=== PATIENT | female | born 1980 | race American Indian/Alaskan Native ===

== ENCOUNTER 2018-11-05 10:27 | Outpatient (CLI) | payer MEDICAID, OTHER ==
[2018-11-05 11:46] LABS: Bacteria,Urine 1+ /HPF (Negative); Bilirubin,Urine NEG (Negative); Blood,Urine NEG (Negative); Color,Urine Yellow (Yellow); Mucus,Urine FEW /HPF; Protein,Urine <15 mg/dL mg/dL (Negative)
[2018-11-05 12:16] LABS: Hematocrit 38.7 % (30.3-42.9); Mean Corpuscular HGB Conc 34 % (30-34); Mean Corpuscular Volume 84 fl (79-97); Platelet Count 185 K/mm3 (140-440); Red Cell Distribution Width 13.7 % (13.2-15.2)
[2018-11-05 12:33] LABS: Alanine Aminotransferase 11 units/L (7-56); Uric Acid 4.3 mg/dL (3.5-7.6)
[2018-11-05 13:28] VITALS: BP 124/75
== END 2018-11-05 13:18 | disposition home or self-care (01) ==
LOC: TRG 10:27
PROVIDERS: ATTEND Obstetrics & Gynecology
DX: O47.1 False labor at or after 37 completed weeks of gestation (principal); O13.3 Gestational [pregnancy-induced] hypertension without significant proteinuria, third trimester; Z3A.39 39 weeks gestation of pregnancy
CPT/HCPCS: 36415; 81001; 82565; 83615; 84450; 84460; 84550; 85027

== ENCOUNTER 2018-11-08 07:16 | Outpatient (CLI) | payer MEDICAID, OTHER | END 2018-11-08 08:27 | disposition home or self-care (01) | LOC: TRG 07:16 ==

== ENCOUNTER 2018-11-09 01:56 | Inpatient (IN) | payer MEDICAID, OTHER ==
[2018-11-09] MEDS ORDERED: LACTATED RINGERS 1,000 ML ONE (02:39)
[2018-11-09] MEDS ORDERED: SUBLIMAZE ONE (02:46)
[2018-11-09] MEDS ORDERED: SUBLIMAZE IV PRN (02:50)
[2018-11-09] MEDS ORDERED: PITOCin/NS 20 UNIT/1000ML DRIP 20,000 MILLIUNITS/1,000 ML BAG IV ONE (02:53)
[2018-11-09] MEDS ORDERED: PITOCin/NS 20 UNIT/1000ML DRIP 20 UNITS/1,000 ML BAG IV SCH (03:00)
[2018-11-09] MEDS ORDERED: AMPICILLIN/NS 2 GM/100 ML 2 GM/100 ML BAG IV ONE (03:04)
--- NOTE | 2018-11-09 03:10 | History and Physical Report ---
History of Present Illness Date of examination: 11/09/18 Date of admission: 11/09/18 02:13 Chief complaint: contractions History of present illness: Pt presents in active labor. EDC Confirmation: 11/07/2018 Gestational Age: 16 weeks Past History : 2 Term Births: 1 Premature Births: 0 Living Children: 1 Para: 1 Mult. Births: 0 Prev : 0 Prev. attempt? 0 Aborta: 0 Elect. Ab: 0 Spont. 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 of genital herpes: no Genetic History ADVANCED MATERNAL AGE Congenital Heart Defect: Mom: no Dad: no Dave Disease: Mom: no Dad: no Thalassemia Mom: no Dad: no Neural Tube Defect Mom: no Dad: no Down's Syndrome Mom: no Dad: no Ifeanyi-Sachs Mom: no Dad: no Sickle Cell Disease/Trait Mom: no Dad: no Hemophilia Mom: no Dad: no Muscular Dystrophy Mom: no Dad: no Cystic Fibrosis Mom: no Dad: no [place] Chorea Mom: no Dad: no Mental Retardation Mom: no Dad: no Fragile X Mom: no Dad: no Other Genetic/Chromosomal Disorder Mom: no Dad: no Child w/other defect Mom: no Dad: no Enviromental Exposures Xray Exposure: no Medication, drug, or alcohol use since LMP: no Chemical/Other Exposure: no Exposure to Cat Liter: no Active Medications (reviewed today): None Current Allergies (reviewed today): No known allergies Past History Past Medical History: no pertinent history Past Surgical History: no surgical history SUPERVISOR PRODUCTION History: trichomonas Social history: no significant social history - Obstetrical History Expected Date of Delivery: 11/07/18 Actual Gestation: 40 Week(s) 2 Day(s) : 2 Para: 1 Number of Living Children: 1 Medications and Allergies Allergies Allergy/AdvReac Type Severity Reaction Status Date / Time No Known Allergies Allergy Verified 09/10/15 21:39 Home Medications Medication Instructions Recorded Confirmed Last Taken Type Vit-Fe Fumar-FA [ 1 tab PO QDAY 11/09/18 11/09/18 11/08/18 18:00 History Vitamin] Active Meds: Active Medications Fentanyl (Sublimaze) 100 mcg IV Q2H PRN PRN Reason: Labor Pain Lactated Ringer's (Lactated Ringers) 1,000 mls @ 125 mls/hr IV DIRECT GERARDO Oxytocin/Sodium Chloride (Pitocin/Ns 20 Unit/1000ml Drip) 20 units in 1,000 mls @ 125 mls/hr IV DIRECT GERARDO Ampicillin Sodium (Polycillin/Ns 2 Gm/100 Ml) 2 gm in 100 mls @ 100 mls/hr IV ONCE ONE; Protocol Stop: 11/09/18 04:03 Review of Systems All systems: negative - Vital Signs Vital signs: Vital Signs Pulse BP 83 138/88 11/09/18 02:01 11/09/18 02:01 Temp Pulse Resp BP Pulse Ox 97.3 F L 83 22 137/91 11/09/18 02:48 11/09/18 02:55 11/09/18 02:50 11/09/18 02:55 - Physical Exam Lungs: Positive: Normal air movement Genitourinary (Female): Positive: normal external genitalia, normal perenium (no lesions) Vagina: Positive: normal moisture Extremities: Positive: normal. Negative: tenderness, edema Deep Tendon Reflex Grade: Normal +2 Results All other labs normal. Assessment and Plan - Patient Problems (1) 40 weeks gestation of Current Visit: Yes Status: Acute (2) Active labor at term Current Visit: Yes Status: Acute Plan to address problem: -admit -anticipate -IV pain med -pt desires epidural
[2018-11-09] MEDS: LACTATED RINGERS 1,000 ML IV SCH ×2 (03:26→07:30)
[2018-11-09 03:32] LABS: Hematocrit 40.7 % (30.3-42.9); Hemoglobin 13.7 gm/dl (10.1-14.3); Mean Corpuscular HGB Conc 34 % (30-34); Mean Corpuscular Volume 85 fl (79-97); Platelet Count 225 K/mm3 (140-440); Red Blood Count 4.81 M/mm3 (3.65-5.03); Red Cell Distribution Width 14.1 % (13.2-15.2)
[2018-11-09] MEDS ORDERED: LIDOCAINE 1.5%/EPI 1:200,000 INFILTRATI ONE (04:26)
[2018-11-09] MEDS ORDERED: MARCAINE 0.25% INFILTRATI ONE (04:26)
[2018-11-09] MEDS ORDERED: NARCAN 2 MG/2 ML IV PRN (05:04)
--- NOTE | 2018-11-09 05:06 | Anesthesia Consultation ---
Anesthesia Consult and Med Hx - Airway Anesthetic Teeth Evaluation: Good ROM Head & Neck: Adequate Mental/Hyoid Distance: Adequate Mallampati Class: Class I Intubation Access Assessment: Probably Good - Pulmonary Exam CTA: Yes - Cardiac Exam Cardiac Exam: RRR - Pre-Operative Health Status ASA Pre-Surgery Classification: ASA2 Proposed Anesthetic Plan: Epidural, Spinal - Pulmonary Hx Asthma: No COPD: No Hx Pneumonia: No - Cardiovascular System Hx Hypertension: No - Central Nervous System Hx Seizures: No Hx Psychiatric Problems: No - Endocrine Hx Renal Disease: No Hx End Stage Renal Disease: No Hx Hypothyroidism: No Hx Hyperthyroidism: No - Hematic Hx Anemia: No Hx Sickle Cell Disease: No - Other Systems Hx Alcohol Use: No
--- NOTE | 2018-11-09 05:06 | Anesthesia Day of Surgery ---
Anesthesia Day of Surgery - Day of Surgery Patient Examined: Yes Patient H&P Reviewed: Yes Patient is NPO: Yes Beta Blockers: No Cardiac Clearance: No Pulmonary Clearance: No Ankur's Test: N/A
[2018-11-09] MEDS ORDERED: fentaNYL-BUPIV 2 MCG/ML-0.125% 200 MCG/100 ML BAG EPIDURAL SCH (06:00)
[2018-11-09] MEDS ORDERED: PITOCin/NS 30 UNIT/500ML 30,000 MILLIUNITS/500 ML BAG IV ONE (06:12)
[2018-11-09] MEDS ORDERED: PITOCin/NS 30 UNIT/500ML 30 UNITS/500 ML BAG IV SCH (06:12)
--- NOTE | 2018-11-09 06:44 | Event Note ---
Date: 11/09/18 I Came to bedside to evaluate pt. As provider was check cervix, pt noted to have glazed gaze, with eyes fluttering and not responding to provider commands initially but was responding to the sound of my voice by turning head and facing me direction. Sternal rub did not cause pt to have a pain response. She also was note to have sweating. Code MET was called. Pt remained in this state for about 10 minutes or less slowly coming around. She did not appear to be having a seizure. All vital including a blood sugar were normal. By the time the personel for the code arrived she was responsive and oriented to time, person and place. She did appear to have some confusion initially but now appears to be fine. She stated that she felt hot and did remember be rubbing on her chest. Cx noted to be 9/100/0. I allowed pt to push to see if remaining cervix could be reduced as pt is a multip and she was stable with normal response to commands. Pt did push but was not effective. During pt episode epidural pump was d/c but it has been restarted. She did have hypotensive episode prior to this even and was given effedrin as per order by rickie DORAN. Pt also now states that with last baby she did have a shoulder dystocia. She states she did not reveal this through out her care until now. That baby weight was 7lbs 12 oz. She as she did on admission denied any use of drugs or alcohol prior to admission. I have d/w that she may need operative delivery via c/s for or maternal indications. Report has been given to Dr. Meza on coming provider for today. Consents for c/s have been signed and placed on the chart.
--- NOTE | 2018-11-09 10:15 | Procedure Note ---
OB Delivery Note - Delivery Date of Delivery: 11/09/18 Surgeon: ZUNILDA MIRANDA Estimated blood loss: 300cc - Vaginal Delivery presentation: vertex Delivery position: OA Intrapartum events: none Delivery induction: none Delivery augmentation: pitocin Delivery monitor: external FHT, external uterine, internal FHT Route of delivery: Delivery placenta: spontaneous Episiotomy: none Delivery laceration: none Anesthesia: epidural - A at 1 minute: 8 at 5 minutes: 9 Gender: Male (6lb 5oz)
[2018-11-09] MEDS ORDERED: SODIUM CHLORIDE FLUSH SYRINGE 10 ML IV NR (14:26)
[2018-11-09] MEDS ORDERED: BENADRYL PO PRN (14:26)
[2018-11-09] MEDS ORDERED: DULCOLAX PR PRN (14:26)
[2018-11-09] MEDS ORDERED: MILK OF MAGNESIA PO PRN (14:26)
[2018-11-09] MEDS ORDERED: PHENERGAN PO PRN (14:26)
[2018-11-09] MEDS ORDERED: TYLENOL PO PRN (14:26)
[2018-11-09] MEDS ORDERED: NORCO 5/325 PO PRN (14:26)
[2018-11-09] MEDS ORDERED: LANSINOH TP PRN (14:26)
[2018-11-09] MEDS ORDERED: TUCKS PAD TP PRN (14:26)
[2018-11-09] MEDS: IBUPROFEN PO SCH (15:14)
[2018-11-09] MEDS: COLACE PO SCH (22:16)
[2018-11-09 22:40] LABS: Hematocrit 33.1 % (30.3-42.9); Hemoglobin 11.1 gm/dl (10.1-14.3)
[2018-11-10] MEDS: IBUPROFEN PO SCH ×2 (05:40→11:11)
[2018-11-10 08:06] VITALS: BP 119/70
--- NOTE | 2018-11-10 09:50 | Discharge Summary ---
Providers - Providers Date of Admission: 11/09/18 02:13 Date of discharge: 11/10/18 Attending physician: VELMA PICKETT 11/09/18 14:26 Consult to Yield Loss Inspector [CONS] Routine Reason For Exam: assistance with , SNS Primary care physician: VELMA PICKETT Hospitalization Reason for admission: active labor Delivery: Episiotomy: none Laceration: none Other procedures: none complications: none Discharge diagnosis: IUP at term delivered baby: male Hospital course: See dictated H&P. Patient was admitted underwent a normal spontaneous vaginal delivery. Her course was benign. She was afebrile throughout her stay. Her day 1 hematocrit was 33%. Patient is bottlefeeding and desires bilateral tubal ligation control. Condition at discharge: Good Disposition: DC-01 TO HOME OR SELFCARE - Discharge Diagnoses (1) 40 weeks gestation of Status: Acute (2) Active labor at term Status: Acute Plan - Discharge Medications Prescriptions: Lidocain2.5%/Prilocai2.5% [Emla] 5 gm TP ONCE #1 tube Ibuprofen [Motrin 800 MG tab] 800 mg PO Q6H PRN #30 tablet PRN Reason: Pain - Provider Discharge Summary Activity: routine, no sex for 6 weeks, no heavy lifting 4 weeks Diet: routine Instructions: routine Additional instructions: [] Smoking cessation referral if applicable(refer to patient education folder for contact #) [] Refer to [facility]'s [facility] Booklet Call your doctor immediately for: * Fever > 100.5 * Heavy vaginal bleeding ( >1 pad per hour) * Severe persistent headache * Shortness of breath * Reddened, hot, painful area to leg or breast * Drainage or odor from incision. *Patient follow up in office in 4 weeks. Patient called office schedule circumcision for her son. - Follow up plan Follow up: VELMA PICKETT MD [Primary Care Provider] - 7 Days
[2018-11-10] MEDS ORDERED: PRENATAL VITAMIN PO SCH (10:00)
[2018-11-10] MEDS: COLACE PO SCH (11:12)
== END 2018-11-10 14:45 | disposition home or self-care (01) | DRG 807 ==
LOC: TRG 01:56 → LD 02:13 → OB 12:20
PROVIDERS: ADMIT Obstetrics & Gynecology; ATTEND Obstetrics & Gynecology
PROC: 10E0XZZ Delivery of Products of Conception, External Approach (ICD-10-PCS; principal; 2018-11-09)
PROC: 3E0R3BZ Introduction of Anesthetic Agent into Spinal Canal, Percutaneous Approach (ICD-10-PCS; 2018-11-09)
PROC: 00HU33Z Insertion of Infusion Device into Spinal Canal, Percutaneous Approach (ICD-10-PCS; 2018-11-09)
DX: O80 Encounter for full-term uncomplicated delivery (principal); Z37.0 Single live birth; Z3A.40 40 weeks gestation of pregnancy
CPT/HCPCS: 36415; 82962; 85014; 85018; 85027; 86592; 86850; 86900; 86901; G0378; J0290; J2590; J3010; J7120

== ENCOUNTER 2020-06-13 04:53 | Emergency (ER) | payer SELFPAY ==
[2020-06-13] MEDS ORDERED: dexAMETHasone 20 MG/5 ML VIAL IM ONE (05:59)
--- NOTE | 2020-06-13 06:30 | Emergency Department Report ---
ED Allergic Reaction HPI - General Chief complaint: Allergic Reaction Stated complaint: BODY RASH/ICHY ALL OVER Time Seen by Provider: 06/13/20 05:52 Source: patient Mode of arrival: Ambulatory Limitations: No Limitations - History of Present Illness Initial Comments: 39-year-old -[place] female presents to the emergency room complaining of body itching since yesterday. Patient denies any swelling of her lips or tongue. She denies any shortness of breath or chest pain. Patient denies any rash. She does report using [id number] Benadryl 50 mg as taken yesterday approximately 6 PM. Patient denies any new soaps lotions, or creams. She does admit to a new shirt yesterday as well as new perfume. MD Complaint: allergic reaction Onset/Timin -: days(s) Symptoms: itching. denies: rash, facial swelling, lip swelling, difficulty swallowing, difficulty breathing, orolingual swelling, hoarseness, nausea, vomiting Severity: mild Treatment Prior to Arrival: benadryl - Related Data Home Medications Medication Instructions Recorded Confirmed Last Taken Vit-Fe Fumar-FA [ 1 tab PO QDAY 11/09/18 11/09/18 11/08/18 18:00 Vitamin] Previous Rx's Medication Instructions Recorded Last Taken Type Ibuprofen [Motrin 800 MG tab] 800 mg PO Q6H PRN #30 tablet 11/10/18 Unknown Rx Lidocain2.5%/Prilocai2.5% [Emla] 5 gm TP ONCE #1 tube 11/10/18 Unknown Rx Loratadine [Claritin] 10 mg PO QDAY #15 tablet 06/13/20 Unknown Rx predniSONE [Deltasone] 20 mg PO QDAY #5 tab 06/13/20 Unknown Rx Allergies Allergy/AdvReac Type Severity Reaction Status Date / Time No Known Allergies Allergy Verified 09/10/15 21:39 ED Review of Systems ROS: Stated complaint: BODY RASH/ICHY ALL OVER Other details as noted in HPI ED Past Medical Hx - Past Medical History Previous Medical History?: No Hx Hypertension: No Hx Congestive Heart Failure: No Hx Diabetes: No Hx Deep Vein Thrombosis: No Hx Renal Disease: No Hx Sickle Cell Disease: No Hx Seizures: No Hx Asthma: No Hx COPD: No Hx HIV: No - Surgical History Past Surgical History?: No - Social History Smoking Status: Never Smoker Substance Use Type: None - Medications Home Medications: Home Medications Medication Instructions Recorded Confirmed Last Taken Type Vit-Fe Fumar-FA [ 1 tab PO QDAY 11/09/18 11/09/18 11/08/18 18:00 History Vitamin] Ibuprofen [Motrin 800 MG tab] 800 mg PO Q6H PRN #30 tablet 11/10/18 Unknown Rx Lidocain2.5%/Prilocai2.5% [Emla] 5 gm TP ONCE #1 tube 11/10/18 Unknown Rx Loratadine [Claritin] 10 mg PO QDAY #15 tablet 06/13/20 Unknown Rx predniSONE [Deltasone] 20 mg PO QDAY #5 tab 06/13/20 Unknown Rx ED Physical Exam - General Limitations: No Limitations General appearance: alert, in no apparent distress - Head Head exam: Present: atraumatic, normocephalic - Eye Eye exam: Present: normal appearance - ENT ENT exam: Present: mucous membranes moist - Respiratory Respiratory exam: Present: normal lung sounds bilaterally - Cardiovascular Cardiovascular Exam: Present: regular rate - Extremities Exam Extremities exam: Present: normal inspection - Neurological Exam Neurological exam: Present: alert, oriented X3, normal gait - Psychiatric Psychiatric exam: Present: normal affect, normal mood - Skin Skin exam: Present: warm, dry, intact, normal color. Absent: rash ED Course Vital Signs 06/13/20 06/13/20 05:23 06:48 Temperature 98.0 F 98.1 F Pulse Rate 77 84 Respiratory 18 18 Rate Blood Pressure 158/94 Blood Pressure 138/88 [Left] O2 Sat by Pulse 98 99 Oximetry ED Medical Decision Making - Medical Decision Making 39-year-old -[place] female presents to the emergency room complaining of body itching since yesterday. Patient denies any swelling of her lips or tongue. She denies any shortness of breath or chest pain. Patient denies any rash. She does report using [id number] Benadryl 50 mg as taken yesterday approximately 6 PM. Patient denies any new soaps lotions, or creams. She does admit to a new shirt yesterday as well as new perfume. She will be given dexamethasone 10 mg IM. Patient be discharged home with a prednisone prescription for 20 mg daily for the next 5 days. Patient is instructed to take Claritin 10 mg daily and to follow-up with an patcher bowling ball. Critical care attestation.: If time is entered above; I have spent that time in minutes in the direct care of this critically ill patient, excluding procedure time. ED Disposition Clinical Impression: Pruritus Disposition: DC-01 TO HOME OR SELFCARE Is pt being admited?: No Does the pt Need Aspirin: No Condition: Stable Instructions: Allergies (ED) Additional Instructions: Please take prednisone as prescribed Claritin as prescribed. Follow-up with an patcher bowling ball. Prescriptions: Loratadine [Claritin] 10 mg PO QDAY #15 tablet predniSONE [Deltasone] 20 mg PO QDAY #5 tab Referrals: [facility] [Provider Group] - 3-5 Days [facility]IMARY [facility]ARE, [Primary Care Provider] - 3-5 Days
[2020-06-13] MEDS ORDERED: dexAMETHasone 20 MG/5 ML VIAL ONE (06:32)
[2020-06-13 06:49] VITALS: BP 138/88
== END 2020-06-13 06:48 | disposition home or self-care (01) ==
LOC: ED 04:53
DX: L29.8 Other pruritus (principal); Z79.899 Other long term (current) drug therapy
CPT/HCPCS: 96372; 99282; J1100

== ENCOUNTER 2020-06-15 06:19 | Inpatient (IN) | payer OTHER ==
[2020-06-15] MEDS ORDERED: HYDROmorphone 1 MG/1 ML INJ IV ONE ×3 (06:54→09:33)
[2020-06-15] MEDS ORDERED: ONDANSETRON 4 MG/2 ML INJ IV ONE (06:54)
[2020-06-15] MEDS ORDERED: ONDANSETRON 4 MG/2 ML INJ ONE (06:55)
[2020-06-15] MEDS ORDERED: HYDROmorphone 1 MG/1 ML INJ ONE (06:55)
--- NOTE | 2020-06-15 06:56 | Emergency Department Report ---
ED Abdominal Pain HPI - General Chief Complaint: Abdominal Pain Stated Complaint: ABDOMINAL PAIN PUI?: No Time Seen by Provider: 06/15/20 06:47 Source: patient, EMS Mode of arrival: Stretcher Limitations: No Limitations - History of Present Illness Initial Comments: 39-year-old female with no past medical surgical history presents to the hospital complaining of severe abdominal pain since taking Atarax this morning. Patient was seen here on June 13 for allergic reaction thought to be due to a new shirt or possible new perfume. Patient symptoms at that time was generalized body itching and rash without lip or airway swelling. She was treated here in the ED and discharged on prednisone and Claritin. Patient states she is continued to have persistent itching despite taking the medication and therefore went to [facility]. Patient was provided Atarax for persistent itching and states she took 4 pills. She then started to develop severe generalized abdominal pain radiating to the back. Patient also having nausea and vomiting patient is writhing in pain dating pain is 10/10 in intensity and sharp in nature. Pain is worse with palpation and no alleviating factors reported. - Related Data Home Medications Medication Instructions Recorded Confirmed Last Taken Vit-Fe Fumar-FA [ 1 tab PO QDAY 11/09/18 11/09/18 11/08/18 18:00 Vitamin] Previous Rx's Medication Instructions Recorded Last Taken Type Ibuprofen [Motrin 800 MG tab] 800 mg PO Q6H PRN #30 tablet 11/10/18 Unknown Rx Lidocain2.5%/Prilocai2.5% [Emla] 5 gm TP ONCE #1 tube 11/10/18 Unknown Rx Loratadine [Claritin] 10 mg PO QDAY #15 tablet 06/13/20 Unknown Rx predniSONE [Deltasone] 20 mg PO QDAY #5 tab 06/13/20 Unknown Rx Allergies Allergy/AdvReac Type Severity Reaction Status Date / Time No Known Allergies Allergy Verified 09/10/15 21:39 ED Review of Systems ROS: Stated complaint: ABDOMINAL PAIN Other details as noted in HPI Comment: All other systems reviewed and negative ED Past Medical Hx - Past Medical History Previous Medical History?: No Hx Hypertension: No Hx Congestive Heart Failure: No Hx Diabetes: No Hx Deep Vein Thrombosis: No Hx Renal Disease: No Hx Sickle Cell Disease: No Hx Seizures: No Hx Asthma: No Hx COPD: No Hx HIV: No - Surgical History Past Surgical History?: No - Social History Smoking Status: Former Smoker Substance Use Type: None - Medications Home Medications: Home Medications Medication Instructions Recorded Confirmed Last Taken Type Vit-Fe Fumar-FA [ 1 tab PO QDAY 11/09/18 11/09/18 11/08/18 18:00 History Vitamin] Ibuprofen [Motrin 800 MG tab] 800 mg PO Q6H PRN #30 tablet 11/10/18 Unknown Rx Lidocain2.5%/Prilocai2.5% [Emla] 5 gm TP ONCE #1 tube 11/10/18 Unknown Rx Loratadine [Claritin] 10 mg PO QDAY #15 tablet 06/13/20 Unknown Rx predniSONE [Deltasone] 20 mg PO QDAY #5 tab 06/13/20 Unknown Rx ED Physical Exam - General Limitations: No Limitations - Other Other exam information: General: Positive distress secondary to pain Head: Atraumatic Eyes: normal appearance ENT: Moist mucous membranes Neck: Normal appearance, no midline tenderness Chest: Clear to auscultation bilaterally CV: Regular rate and rhythm Abdomen: Soft, normal bowel sounds, generalized abdominal tenderness, nondistended, no rebound or guarding Back: Normal inspection Extremity: Normal inspection, full range of motion Neuro: Alert O x 3, no facial asymmetry, speech clear, no gross motor sensory deficit Psych: Distress secondary to pain Skin: No rash ED Course Vital Signs 06/15/20 06/15/20 06/15/20 06:29 06:30 06:32 Temperature Pulse Rate 73 Respiratory 21 15 18 Rate Blood Pressure 138/87 Blood Pressure [Right] O2 Sat by Pulse 100 Oximetry 06/15/20 06/15/20 06/15/20 06:33 06:34 06:36 Temperature Pulse Rate 67 Respiratory 17 13 13 Rate Blood Pressure 138/87 138/87 138/87 Blood Pressure [Right] O2 Sat by Pulse 100 100 100 Oximetry 06/15/20 06/15/20 06/15/20 06:39 06:50 09:14 Temperature 98.3 F Pulse Rate 59 L Respiratory 18 17 Rate Blood Pressure Blood Pressure 157/90 [Right] O2 Sat by Pulse 100 100 Oximetry 06/15/20 06/15/20 06/15/20 10:01 10:30 11:32 Temperature Pulse Rate 56 L 59 L 66 Respiratory 28 H 25 H 14 Rate Blood Pressure 161/91 164/96 141/94 Blood Pressure [Right] O2 Sat by Pulse 99 96 100 Oximetry ED Medical Decision Making - Lab Data Result diagrams: 06/15/20 06:52 06/15/20 06:45 Lab Results 06/15/20 06/15/20 06/15/20 Range/Units 06:45 06:52 06:54 WBC 6.6 (4.5-11.0) K/mm3 RBC 5.12 H (3.65-5.03) M/mm3 Hgb 13.8 (10.1-14.3) gm/dl Hct 42.3 (30.3-42.9) % MCV 83 (79-97) fl MCH 27 L (28-32) pg MCHC 33 (30-34) % RDW 13.7 (13.2-15.2) % Plt Count 212 (140-440) K/mm3 Lymph % (Auto) 44.3 H (13.4-35.0) % [place] % (Auto) 7.6 H (0.0-7.3) % Eos % (Auto) 0.2 (0.0-4.3) % Baso % (Auto) 0.6 (0.0-1.8) % Lymph # 2.9 (1.2-5.4) K/mm3 [place] # 0.5 (0.0-0.8) K/mm3 Eos # 0.0 (0.0-0.4) K/mm3 Baso # 0.0 (0.0-0.1) K/mm3 Seg Neutrophils % 47.3 (40.0-70.0) % Seg Neutrophils # 3.1 (1.8-7.7) K/mm3 Sodium 140 (137-145) mmol/L Potassium 3.1 L (3.6-5.0) mmol/L Chloride 101.5 (98-107) mmol/L Carbon Dioxide 20 L (22-30) mmol/L Anion Gap 22 mmol/L BUN 6 L (7-17) mg/dL Creatinine 0.8 (0.6-1.2) mg/dL Estimated GFR > 60 ml/min BUN/Creatinine Ratio 8 % Glucose 95 (65-100) mg/dL Calcium 9.7 (8.4-10.2) mg/dL Total Bilirubin 0.60 (0.1-1.2) mg/dL AST 15 (5-40) units/L ALT 13 (7-56) units/L Alkaline Phosphatase 68 (35-129) units/L Total Protein 8.4 H (6.3-8.2) g/dL Albumin 4.4 (3.9-5) g/dL Albumin/Globulin Ratio 1.1 % Lipase 20 (13-60) units/L HCG, Quant < 2 (0-4) mIU/mL - Radiology Data Radiology results: report reviewed CT ABDOMEN AND PELVIS WITH IV CONTRAST INDICATION: severe generalized abdomina pain. COMPARISON: None available. TECHNIQUE: Axial CT images were obtained through the abdomen and pelvis after 100 mL IV contrast. All CT scans at this location are performed using CT dose reduction for ALARA by means of automated exposure control. FINDINGS -- ABDOMEN: Lung Bases: No acute abnormality. Liver: Normal. Gallbladder: Normal. Bile Ducts: Normal. Pancreas: Normal. Spleen: Normal. Adrenals: Normal. Right Kidney and Proximal Ureter: Normal. Left Kidney and Proximal Ureter: Normal. Stomach and Bowel: The mucosa of the distal gastric body and gastric antrum appear thickened.. Lymph Nodes: No significant adenopathy. Aorta: No significant abnormality. IVC: Normal. Additional Findings: None. FINDINGS -- PELVIS: Urinary Bladder and Distal Ureters: Normal. Reproductive Organs: No acute abnormality. Appendix: Not well identified.. Bowel: No acute abnormality. Free Fluid: Minimal free pelvic fluid.. Lymph Nodes: No significant adenopathy. Additional Findings: None. Skeletal System: No acute abnormality. IMPRESSION: Thickened mucosa involving the body and distal gastric antrum, as above could represent mild gastritis. Minimal free pelvic fluid is likely physiologic. - Medical Decision Making Patient having significant pain after taking 4 tablets of Atarax for persistent pruritus due to allergic reaction to unknown substance with no exposure to perfume. His hospital is can be an adverse medication reaction. Patient requiring significant pain medication in the ED to control her pain. CT abdomen pelvis suggestive of gastritis. Labs unremarkable with exception of mild hypokalemia which was supplemented in the ED. Urine pending at disposition. Patient will be admitted to the hospitalist service for further treatment. Critical Care Time: No Critical care attestation.: If time is entered above; I have spent that time in minutes in the direct care of this critically ill patient, excluding procedure time. ED Disposition Clinical Impression: Intractable abdominal pain, Gastritis Disposition: DC-09 OP ADMIT IP TO THIS HOSP Is pt being admited?: Yes Condition: Stable
[2020-06-15 07:19] LABS: Basophils % (Auto) 0.6 % (0.0-1.8); Eosinophils % (Auto) 0.2 % (0.0-4.3); Hematocrit 42.3 % (30.3-42.9); Hemoglobin 13.8 gm/dl (10.1-14.3); Lymphocytes # (Auto) 2.9 K/mm3 (1.2-5.4); Lymphocytes % (Auto) 44.3 % (13.4-35.0); Mean Corpuscular HGB Conc 33 % (30-34); Mean Corpuscular Volume 83 fl (79-97); Monocytes # (Auto) 0.5 K/mm3 (0.0-0.8); Monocytes % (Auto) 7.6 % (0.0-7.3); Platelet Count 212 K/mm3 (140-440); Red Blood Count 5.12 M/mm3 (3.65-5.03); Red Cell Distribution Width 13.7 % (13.2-15.2)
[2020-06-15 07:43] LABS: Alanine Aminotransferase 13 units/L (7-56); Albumin 4.4 g/dL (3.9-5); BUN/Creatinine Ratio 8; Blood Urea Nitrogen 6 mg/dL (7-17); Calcium 9.7 mg/dL (8.4-10.2); Hemolysis Index 4
[2020-06-15] MEDS ORDERED: SODIUM CHLORIDE 0.9% 1000 ML 1,000 ML IV ONE (08:07)
[2020-06-15] MEDS ORDERED: POTASSIUM CHLORIDE ER 20 MEQ TAB PO ONE (08:07)
--- NOTE | 2020-06-15 09:25 | Cat Scan Report ---
CT ABDOMEN AND PELVIS WITH IV CONTRAST INDICATION: severe generalized abdomina pain. COMPARISON: None available. TECHNIQUE: Axial CT images were obtained through the abdomen and pelvis after 100 mL IV contrast. All CT scans a t this location are performed using CT dose reduction for ALARA by means of automated exposure contro l. FINDINGS -- ABDOMEN: Lung Bases: No acute abnormality. Liver: Normal. Gallbladder: Normal. Bile Ducts: Normal. Pancreas: Normal. Spleen: Normal. Adrenals: Normal. Right Kidney and Proximal Ureter: Normal. Left Kidney and Proximal Ureter: Normal. Stomach and Bowel: The mucosa of the distal gastric body and gastric antrum appear thickened.. Lymph Nodes: No significant adenopathy. Aorta: No significant abnormality. IVC: Normal. Additional Findings: None. FINDINGS -- PELVIS: Urinary Bladder and Distal Ureters: Normal. Reproductive Organs: No acute abnormality. Appendix: Not well identified.. Bowel: No acute abnormality. Free Fluid: Minimal free pelvic fluid.. Lymph Nodes: No significant adenopathy. Additional Findings: None. Skeletal System: No acute abnormality. IMPRESSION: Thickened mucosa involving the body and distal gastric antrum, as above could represent mild gastriti s. Minimal free pelvic fluid is likely physiologic. Signer Name: Lawrence Hills MD Signed: 06/15/2020 9:21 AM Workstation Name: [id number]
[2020-06-15] MEDS ORDERED: FAMOTIDINE 20 MG/2 ML INJ IV ONE (09:28)
[2020-06-15] MEDS: HYDROmorphone 1 MG/1 ML INJ IV PRN ×2 (14:36→18:35)
--- NOTE | 2020-06-15 17:19 | History and Physical Report ---
History of Present Illness Date of examination: 06/15/20 Date of admission: 06/15/20 09:59 Chief complaint: Severe abdominal pain for 1 day History of present illness: 39-year-old female with no significant past medical history comes in for severe abdominal pain. Pain is about 10 on a scale of 1-10. Patient also has persistent itching and went to [facility].Patient was discharged on Atarax. Patient comes in for severe epigastric and periumbilical pain. No exacerbating or relieving factors. Nausea present but no vomiting or diarrhea. No history of peptic ulcer disease. Pain is sharp. No radiation. Past History Past Medical History: No medical history Past Surgical History: No surgical history Social history: lives with family, full code Family history: hypertension Medications and Allergies Allergies Allergy/AdvReac Type Severity Reaction Status Date / Time No Known Allergies Allergy Verified 09/10/15 21:39 Home Medications Medication Instructions Recorded Confirmed Last Taken Type Vit-Fe Fumar-FA [ 1 tab PO QDAY 11/09/18 11/09/18 11/08/18 18:00 History Vitamin] Ibuprofen [Motrin 800 MG tab] 800 mg PO Q6H PRN #30 tablet 11/10/18 Unknown Rx Lidocain2.5%/Prilocai2.5% [Emla] 5 gm TP ONCE #1 tube 11/10/18 Unknown Rx Loratadine [Claritin] 10 mg PO QDAY #15 tablet 06/13/20 Unknown Rx predniSONE [Deltasone] 20 mg PO QDAY #5 tab 06/13/20 Unknown Rx Active Meds: Active Medications Hydromorphone HCl (Dilaudid) 1 mg IV Q4H PRN PRN Reason: Pain , Severe (7-10) Last Admin: 06/15/20 14:36 Dose: 1 mg Documented by: Review of Systems All systems: negative Gastrointestinal: abdominal pain, nausea Exam - Constitutional Vitals: Temp Pulse Resp BP Pulse Ox 98.3 F 66 14 141/94 100 06/15/20 06:39 06/15/20 11:32 06/15/20 11:32 06/15/20 11:32 06/15/20 11:32 General appearance: Present: mild distress, well-nourished - EENT Eyes: Present: PERRL ENT: hearing intact, clear oral mucosa - Neck Neck: Present: supple, normal ROM - Respiratory Respiratory effort: normal Respiratory: bilateral: CTA - Cardiovascular Heart rate: 78 Heart Sounds: Present: S1 & S2. Absent: rub, click - Extremities Extremities: no ischemia, pulses intact, pulses symmetrical, No edema Peripheral Pulses: within normal limits - Abdominal General gastrointestinal: Present: soft, non-tender, non-distended, normal bowel sounds Female genitourinary: Present: normal - Rectal Rectal Exam: deferred - Integumentary Integumentary: Present: clear, warm, dry - Musculoskeletal Musculoskeletal: gait normal, strength equal bilaterally - Psychiatric Psychiatric: appropriate mood/affect, intact judgment & insight - Neurologic Neurologic: CNII-XII intact, moves all extremities - Allied Health Allied health notes reviewed: nursing, case management Results - Labs CBC & Chem 7: 06/16/20 05:16 06/16/20 05:16 Labs: Laboratory Last Values WBC 6.6 K/mm3 (4.5-11.0) 06/15/20 06:52 RBC 5.12 M/mm3 (3.65-5.03) H 06/15/20 06:52 Hgb 13.8 gm/dl (10.1-14.3) 06/15/20 06:52 Hct 42.3 % (30.3-42.9) 06/15/20 06:52 MCV 83 fl (79-97) 06/15/20 06:52 MCH 27 pg (28-32) L 06/15/20 06:52 MCHC 33 % (30-34) 06/15/20 06:52 RDW 13.7 % (13.2-15.2) 06/15/20 06:52 Plt Count 212 K/mm3 (140-440) 06/15/20 06:52 Lymph % (Auto) 44.3 % (13.4-35.0) H 06/15/20 06:52 [place] % (Auto) 7.6 % (0.0-7.3) H 06/15/20 06:52 Eos % (Auto) 0.2 % (0.0-4.3) 06/15/20 06:52 Baso % (Auto) 0.6 % (0.0-1.8) 06/15/20 06:52 Lymph # 2.9 K/mm3 (1.2-5.4) 06/15/20 06:52 [place] # 0.5 K/mm3 (0.0-0.8) 06/15/20 06:52 Eos # 0.0 K/mm3 (0.0-0.4) 06/15/20 06:52 Baso # 0.0 K/mm3 (0.0-0.1) 06/15/20 06:52 Seg Neutrophils % 47.3 % (40.0-70.0) 06/15/20 06:52 Seg Neutrophils # 3.1 K/mm3 (1.8-7.7) 06/15/20 06:52 Sodium 140 mmol/L (137-145) 06/15/20 06:45 Potassium 3.1 mmol/L (3.6-5.0) L 06/15/20 06:45 Chloride 101.5 mmol/L (98-107) 06/15/20 06:45 Carbon Dioxide 20 mmol/L (22-30) L 06/15/20 06:45 Anion Gap 22 mmol/L 06/15/20 06:45 BUN 6 mg/dL (7-17) L 06/15/20 06:45 Creatinine 0.8 mg/dL (0.6-1.2) 06/15/20 06:45 Estimated GFR > 60 ml/min 06/15/20 06:45 BUN/Creatinine Ratio 8 % 06/15/20 06:45 Glucose 95 mg/dL (65-100) 06/15/20 06:45 Calcium 9.7 mg/dL (8.4-10.2) 06/15/20 06:45 Total Bilirubin 0.60 mg/dL (0.1-1.2) 06/15/20 06:45 AST 15 units/L (5-40) 06/15/20 06:45 ALT 13 units/L (7-56) 06/15/20 06:45 Alkaline Phosphatase 68 units/L (35-129) 06/15/20 06:45 Total Protein 8.4 g/dL (6.3-8.2) H 06/15/20 06:45 Albumin 4.4 g/dL (3.9-5) 06/15/20 06:45 Albumin/Globulin Ratio 1.1 % 06/15/20 06:45 Lipase 20 units/L (13-60) 06/15/20 06:45 HCG, Quant < 2 mIU/mL (0-4) 06/15/20 06:54 - Imaging and Cardiology Imaging and Cardiology: CT Abdomen with contrast IMPRESSION: Thickened mucosa involving the body and distal gastric antrum, as above could represent mild gastritis. Minimal free pelvic fluid is likely physiologic. Zuñiga/IV: IV Catheter Type [Left INT / Saline Lock Antecubital] Assessment and Plan Advance Directives: Yes (Full code) VTE prophylaxis?: Chemical Plan of care discussed with patient/family: Yes - Patient Problems (1) Intractable abdominal pain Current Visit: Yes Status: Acute Plan to address problem: Patient in intractable pain Will get GI and surgery consult (2) Pruritus Current Visit: No Status: Acute Plan to address problem: Benadryl IV 25 mg every 6 as needed (3) Acute gastritis Current Visit: Yes Status: Acute Plan to address problem: IV Protonix for now (4) Discharge planning issues Current Visit: Yes Status: Acute Plan to address problem: Possible discharge tomorrow
[2020-06-15] MEDS ORDERED: ACETAMINOPHEN 325 MG TAB PO PRN (17:21)
[2020-06-15] MEDS ORDERED: ONDANSETRON 4 MG/2 ML INJ IV PRN (17:21)
[2020-06-15] MEDS ORDERED: METOCLOPRAMIDE 10 MG/2 ML INJ IV PRN (17:21)
[2020-06-15] MEDS: D5W/0.9% NACL 1,000 ML IV SCH (17:43)
[2020-06-15] MEDS ORDERED: diphenhydrAMINE 50 MG/ML VIAL IV PRN (18:27)
[2020-06-15] MEDS: PANTOPRAZOLE 40 MG INJ IV SCH (21:17)
[2020-06-15] MEDS: oxyCODONE /ACETAMINOPHEN 5-325MG TAB PO PRN (22:45)
[2020-06-16] MEDS: HYDROmorphone 1 MG/1 ML INJ IV PRN ×4 (01:52→23:11)
[2020-06-16 05:55] LABS: Basophils % (Auto) 0.7 % (0.0-1.8); Eosinophils % (Auto) 0.3 % (0.0-4.3); Hematocrit 38.8 % (30.3-42.9); Hemoglobin 12.8 gm/dl (10.1-14.3); Lymphocytes # (Auto) 2.7 K/mm3 (1.2-5.4); Lymphocytes % (Auto) 39.2 % (13.4-35.0); Mean Corpuscular HGB Conc 33 % (30-34); Mean Corpuscular Volume 83 fl (79-97); Monocytes # (Auto) 0.6 K/mm3 (0.0-0.8); Monocytes % (Auto) 8.2 % (0.0-7.3); Platelet Count 180 K/mm3 (140-440); Red Blood Count 4.67 M/mm3 (3.65-5.03); Red Cell Distribution Width 13.6 % (13.2-15.2)
[2020-06-16 06:18] LABS: Alanine Aminotransferase 12 units/L (7-56); Albumin 3.9 g/dL (3.9-5); Blood Urea Nitrogen 4 mg/dL (7-17); Hemolysis Index 9
[2020-06-16 06:19] LABS: BUN/Creatinine Ratio 7
[2020-06-16] MEDS: oxyCODONE /ACETAMINOPHEN 5-325MG TAB PO PRN ×3 (07:26→20:37)
--- NOTE | 2020-06-16 10:03 | Progress Note ---
Assessment and Plan - Patient Problems (1) Intractable abdominal pain Current Visit: Yes Status: Acute Plan to address problem: Patient in intractable pain Will get GI and surgery consult Unable to discharge because the patient is in severe severe pain (2) Pruritus Current Visit: No Status: Acute Plan to address problem: Benadryl IV 25 mg every 6 as needed Pruritus resolved (3) Acute gastritis Current Visit: Yes Status: Acute Plan to address problem: IV Protonix for now (4) Discharge planning issues Current Visit: Yes Status: Acute Plan to address problem: Possible discharge tomorrow. Patient could not be discharged today because of the severe abdominal pain. Patient is changed to inpatient. Subjective Date of service: 06/16/20 Principal diagnosis: Acute Gastritis Interval history: C/o severe abdominal pain--8 on scale of 1 to 10 39-year-old female with no significant past medical history comes in for severe abdominal pain. Pain is about 10 on a scale of 1-10. Patient also has persistent itching and went to [facility].Patient was discharged on Atarax. Patient comes in for severe epigastric and periumbilical pain. No exacerbating or relieving factors. Nausea present but no vomiting or diarrhea. No history of peptic ulcer disease. Pain is sharp. No radiation. Objective - Constitutional General appearance: Present: no acute distress, well-nourished - EENT Eyes: PERRL, EOM intact ENT: hearing intact, clear oral mucosa Ears: bilateral: normal - Neck Neck: supple, normal ROM - Respiratory Respiratory effort: normal Respiratory: bilateral: CTA - Breasts Breasts: normal - Cardiovascular Rhythm: regular Heart Sounds: Present: S1 & S2. Absent: gallop, rub Extremities: pulses intact, No edema, normal color, Full ROM - Gastrointestinal General gastrointestinal: Present: soft, non-tender, non-distended, normal bowel sounds - Genitourinary Female genitourinary: normal - Integumentary Integumentary: clear, warm, dry - Musculoskeletal Musculoskeletal: 1, strength equal bilaterally - Neurologic Neurologic: moves all extremities - Psychiatric Psychiatric: memory intact, appropriate mood/affect, intact judgment & insight - Labs CBC & Chem 7: 06/16/20 05:16 06/16/20 05:16 Labs: Abnormal lab results 06/16/20 06/16/20 Range/Units 05:16 05:16 MCH 27 L (28-32) pg Lymph % (Auto) 39.2 H (13.4-35.0) % [place] % (Auto) 8.2 H (0.0-7.3) % BUN 4 L (7-17) mg/dL Glucose 115 H (65-100) mg/dL
[2020-06-16] MEDS: PANTOPRAZOLE 40 MG INJ IV SCH ×2 (10:04→21:05)
--- NOTE | 2020-06-16 11:17 | Gastroenterology Consultation ---
History of Present Illness - Reason for Consult Consult date: 06/16/20 abdominal pain, abnormal CT Requesting physician: JOSE BELTRÁN - History of Present Illness This is a pleasant 39-year-old female with no significant history who presents for abdominal pain. Patient reports she was having allergic reaction and was given Atarax and Sunday and since then has been having abdominal pain on Sunday she reports that the pain was 10 out of 10 severe diffuse sharp associate with nausea vomiting coming in waves intractable Patient reports currently minimal improvement now 6-8 out of 10 in terms of the severity the pain still coming in waves sharp mid to lower abdomen associate with nausea no vomiting however Patient denies tobacco or NSAID use Denies melena Denies any history of abdominal pain like this in the past Reports had difficulty tolerating her clears this morning CT noted Obtained/updated/reviewed patient's current medications Past History Past Surgical History: No surgical history Social history: no significant social history Family history: no significant family history Medications and Allergies Allergies Allergy/AdvReac Type Severity Reaction Status Date / Time No Known Allergies Allergy Verified 09/10/15 21:39 Home Medications Medication Instructions Recorded Confirmed Last Taken Type Vit-Fe Fumar-FA [ 1 tab PO QDAY 11/09/18 11/09/18 11/08/18 18:00 History Vitamin] Ibuprofen [Motrin 800 MG tab] 800 mg PO Q6H PRN #30 tablet 11/10/18 Unknown Rx Lidocain2.5%/Prilocai2.5% [Emla] 5 gm TP ONCE #1 tube 11/10/18 Unknown Rx Loratadine [Claritin] 10 mg PO QDAY #15 tablet 06/13/20 Unknown Rx predniSONE [Deltasone] 20 mg PO QDAY #5 tab 06/13/20 Unknown Rx Active Meds: Active Medications Acetaminophen (Tylenol) 650 mg PO Q4H PRN PRN Reason: Pain MILD(1-3)/Fever >100.5/LINDSEY Diphenhydramine HCl (Benadryl) 25 mg IV Q6H PRN PRN Reason: Itching Hydromorphone HCl (Dilaudid) 0.5 mg IV Q3H PRN PRN Reason: Pain , Severe (7-10) Last Admin: 06/16/20 10:04 Dose: 0.5 mg Documented by: Dextrose/Sodium Chloride (D5ns) 1,000 mls @ 125 mls/hr IV DIRECT [facility] Last Admin: 06/15/20 17:43 Dose: 125 mls/hr Documented by: Metoclopramide HCl (Reglan) 10 mg IV Q6H PRN PRN Reason: Nausea And Vomiting Ondansetron HCl (Zofran) 4 mg IV Q8H PRN PRN Reason: Nausea And Vomiting Oxycodone/Acetaminophen (Percocet 5/325) 1 tab PO Q6H PRN PRN Reason: Pain, Moderate (4-6) Last Admin: 06/16/20 07:26 Dose: 1 tab Documented by: Pantoprazole Sodium (Protonix) 40 mg IV BID [facility] Last Admin: 06/16/20 10:04 Dose: 40 mg Documented by: Sodium Chloride (Sodium Chloride Flush Syringe 10 Ml) 10 ml IV BID [facility] Last Admin: 06/16/20 00:43 Dose: Not Given Documented by: Sodium Chloride (Sodium Chloride Flush Syringe 10 Ml) 10 ml IV PRN PRN PRN Reason: LINE FLUSH Review of Systems - Review of Systems All systems: negative (10 Systems reviewed and negative except as mentioned above in the history of present illness) Exam - Constitutional Vital Signs: Temp Pulse Resp BP Pulse Ox 98.2 F 54 L 20 162/66 100 06/15/20 21:10 06/15/20 21:10 06/15/20 21:10 06/15/20 21:10 06/15/20 21:10 General appearance: no acute distress - EENT Eyes: EOM intact ENT: hearing intact - Neck Neck: supple - Respiratory Respiratory effort: normal - Cardiovascular Rhythm: regular - Gastrointestinal General gastrointestinal: Present: soft, tender - Integumentary Integumentary: Present: dry - Neurologic Neurological: alert and oriented x3 - Psychiatric Psychiatric: appropriate mood/affect - Labs CBC & Chem 7: 06/16/20 05:16 06/16/20 05:16 Lab Results: Laboratory Results - last 24 hr 06/15/20 06/16/20 06/16/20 06:52 05:16 05:16 WBC 6.9 RBC 4.67 Hgb 12.8 Hct 38.8 MCV 83 MCH 27 L MCHC 33 RDW 13.6 Plt Count 180 Lymph % (Auto) 39.2 H [place] % (Auto) 8.2 H Eos % (Auto) 0.3 Baso % (Auto) 0.7 Lymph # 2.7 [place] # 0.6 Eos # 0.0 Baso # 0.0 Seg Neutrophils % 51.6 Seg Neutrophils # 3.5 Sodium 139 Potassium 3.6 Chloride 104.1 Carbon Dioxide 23 Anion Gap 16 BUN 4 L Creatinine 0.6 Estimated GFR > 60 BUN/Creatinine Ratio 7 Glucose 115 H Hemoglobin A1c 5.6 Calcium 9.0 Total Bilirubin 0.80 AST 13 ALT 12 Alkaline Phosphatase 61 Total Protein 7.6 Albumin 3.9 Albumin/Globulin Ratio 1.1 Assessment and Plan Acute abdominal pain most likely related to medication side effect versus acute gastroenteritis. Acute peptic ulcer disease less likely given the lack of risk factors as well as presentation Therefore recommend continue supportive care continue twice daily PPI, and add on bentyl She does not appear able to be discharged home today, recommend holding on for another day and she will hopefully be improved enough by tomorrow to be discharged home - Patient Problems (1) Abnormal CT of the abdomen Current Visit: Yes Status: Acute (2) Acute gastritis Current Visit: Yes Status: Acute (3) Intractable abdominal pain Current Visit: Yes Status: Acute
[2020-06-16] MEDS: DICYCLOMINE 10 MG CAP PO SCH ×3 (13:38→21:06)
[2020-06-16] MEDS: D5W/0.9% NACL 1,000 ML IV SCH ×2 (13:39→20:42)
--- NOTE | 2020-06-16 13:53 | Consultation ---
History of Present Illness Consult date: 06/16/20 Reason for consult: abdominal pain Chief complaint: Abdominal pain - History of present illness History of present illness: 39-year-old female who presented to the emergency room with severe upper abdomin al pain. The pain is sharp and crampy in nature and started after she began taking Atarax. The patient had presented to [facility] emergency room several days ago for persistent itching/allergic reaction and was treated for this and discharged. As the itchiness did not improve, the patient presented to an outside hospital and was prescribed Atarax. She states when she started taking this medication she started experiencing severe upper abdominal pain. She did have nausea and vomiting, but has not vomited since being admitted to the hospital. She has never had pain like this before. No fevers or chills. No chest pain or shortness of breath. She states she has not had a bowel movement or passed flatus. Past History Past Medical History: No medical history Past Surgical History: No surgical history Social history: no significant social history Family history: no significant family history Medications and Allergies Allergies Allergy/AdvReac Type Severity Reaction Status Date / Time No Known Allergies Allergy Verified 09/10/15 21:39 Home Medications Medication Instructions Recorded Confirmed Last Taken Type Vit-Fe Fumar-FA [ 1 tab PO QDAY 11/09/18 11/09/18 11/08/18 18:00 History Vitamin] Ibuprofen [Motrin 800 MG tab] 800 mg PO Q6H PRN #30 tablet 11/10/18 Unknown Rx Lidocain2.5%/Prilocai2.5% [Emla] 5 gm TP ONCE #1 tube 11/10/18 Unknown Rx Loratadine [Claritin] 10 mg PO QDAY #15 tablet 06/13/20 Unknown Rx predniSONE [Deltasone] 20 mg PO QDAY #5 tab 06/13/20 Unknown Rx Active Meds: Active Medications Acetaminophen (Tylenol) 650 mg PO Q4H PRN PRN Reason: Pain MILD(1-3)/Fever >100.5/LINDSEY Dicyclomine HCl (Bentyl) 10 mg PO QID GER[facility] Last Admin: 06/16/20 13:38 Dose: 10 mg Documented by: Diphenhydramine HCl (Benadryl) 25 mg IV Q6H PRN PRN Reason: Itching Hydromorphone HCl (Dilaudid) 0.5 mg IV Q3H PRN PRN Reason: Pain , Severe (7-10) Last Admin: 06/16/20 10:04 Dose: 0.5 mg Documented by: Dextrose/Sodium Chloride (D5ns) 1,000 mls @ 125 mls/hr IV DIRECT [facility] Last Admin: 06/16/20 13:39 Dose: 125 mls/hr Documented by: Metoclopramide HCl (Reglan) 10 mg IV Q6H PRN PRN Reason: Nausea And Vomiting Ondansetron HCl (Zofran) 4 mg IV Q8H PRN PRN Reason: Nausea And Vomiting Oxycodone/Acetaminophen (Percocet 5/325) 1 tab PO Q6H PRN PRN Reason: Pain, Moderate (4-6) Last Admin: 06/16/20 12:29 Dose: 1 tab Documented by: Pantoprazole Sodium (Protonix) 40 mg IV BID [facility] Last Admin: 06/16/20 10:04 Dose: 40 mg Documented by: Sodium Chloride (Sodium Chloride Flush Syringe 10 Ml) 10 ml IV BID [facility] Last Admin: 06/16/20 13:38 Dose: 10 ml Documented by: Sodium Chloride (Sodium Chloride Flush Syringe 10 Ml) 10 ml IV PRN PRN PRN Reason: LINE FLUSH Review of Systems All systems: negative (10 point ROS performed and negative except for that li sted in HPI) Exam Vital Signs Resp 21 06/15/20 06:29 Narrative exam: Gen.: Awake, alert, oriented 3. Moderate distress due to abdominal pain ENT: Trachea midline. No lymphadenopathy. No scleral icterus or conjunctival pallor CV: S1, S2 present Respiratory: No audible wheezes Abdomen: Soft, nondistended, tenderness to palpation in the bilateral upper quadrants and epigastrium. No rebound, rigidity, guarding Extremities: No clubbing, cyanosis, edema Results - Labs 06/16/20 05:16 06/16/20 05:16 Abnormal lab results 06/16/20 06/16/20 Range/Units 05:16 05:16 MCH 27 L (28-32) pg Lymph % (Auto) 39.2 H (13.4-35.0) % [place] % (Auto) 8.2 H (0.0-7.3) % BUN 4 L (7-17) mg/dL Glucose 115 H (65-100) mg/dL Diabetes panel 06/15/20 06/16/20 Range/Units 06:52 05:16 Sodium 139 (137-145) mmol/L Potassium 3.6 (3.6-5.0) mmol/L Chloride 104.1 (98-107) mmol/L Carbon Dioxide 23 (22-30) mmol/L BUN 4 L (7-17) mg/dL Creatinine 0.6 (0.6-1.2) mg/dL Glucose 115 H (65-100) mg/dL Hemoglobin A1c 5.6 (4-6) % Calcium 9.0 (8.4-10.2) mg/dL AST 13 (5-40) units/L ALT 12 (7-56) units/L Alkaline Phosphatase 61 (35-129) units/L Total Protein 7.6 (6.3-8.2) g/dL Albumin 3.9 (3.9-5) g/dL Calcium panel 06/16/20 Range/Units 05:16 Calcium 9.0 (8.4-10.2) mg/dL Albumin 3.9 (3.9-5) g/dL Pituitary panel 06/16/20 Range/Units 05:16 Sodium 139 (137-145) mmol/L Potassium 3.6 (3.6-5.0) mmol/L Chloride 104.1 (98-107) mmol/L Carbon Dioxide 23 (22-30) mmol/L BUN 4 L (7-17) mg/dL Creatinine 0.6 (0.6-1.2) mg/dL Glucose 115 H (65-100) mg/dL Calcium 9.0 (8.4-10.2) mg/dL Adrenal panel 06/16/20 Range/Units 05:16 Sodium 139 (137-145) mmol/L Potassium 3.6 (3.6-5.0) mmol/L Chloride 104.1 (98-107) mmol/L Carbon Dioxide 23 (22-30) mmol/L BUN 4 L (7-17) mg/dL Creatinine 0.6 (0.6-1.2) mg/dL Glucose 115 H (65-100) mg/dL Calcium 9.0 (8.4-10.2) mg/dL Total Bilirubin 0.80 (0.1-1.2) mg/dL AST 13 (5-40) units/L ALT 12 (7-56) units/L Alkaline Phosphatase 61 (35-129) units/L Total Protein 7.6 (6.3-8.2) g/dL Albumin 3.9 (3.9-5) g/dL - Imaging CT scan - abdomen: report reviewed, image reviewed CT scan - pelvis: report reviewed, image reviewed Assessment and Plan 39 yo F with abdominal pain, gastritis Plan: 1. Agree with GI assessment and rec - continue IVF, PPI, prn pain and nausea control 2. diet as luzma 3. No surgical intervention at this time. Thank you, please call with questions. Evaluation and treatment of this patient was during the time of the national and state emergency arising from COVID19 coronavirus pandemic. Treatment and procedures performed meet the current and available best practice and guidelines for patient during the COVID pandemic.
[2020-06-17] MEDS: oxyCODONE /ACETAMINOPHEN 5-325MG TAB PO PRN ×2 (03:20→14:15)
[2020-06-17] MEDS: D5W/0.9% NACL 1,000 ML IV SCH (05:23)
[2020-06-17 06:55] VITALS: BP 134/87
--- NOTE | 2020-06-17 07:35 | Discharge Summary ---
Providers - Providers Date of Admission: 06/16/20 10:00 Date of discharge: 06/17/20 Attending physician: JOSE BELTRÁN 06/16/20 09:58 Consult to Physician [CONS] Routine Comment: Consulting Provider: KANDIS RAMESH Physician Instructions: Reason For Exam: Gastritis/PUD 06/16/20 10:18 Consult to Physician [CONS] Routine Comment: Consulting Provider: SEEMA JORDAN Physician Instructions: Reason For Exam: intrracTABLE ABD PAIN Primary care physician: JAVA USER INTERFACE DEVELOPER Hospitalization Condition: Stable Hospital course: Subjective Date of service: 06/17/20 Principal diagnosis: Acute Gastritis Interval history: C/o severe abdominal pain--8 on scale of 1 to 10 39-year-old female with no significant past medical history comes in for severe abdominal pain. Pain is about 10 on a scale of 1-10. Patient also has persistent itching and went to [facility].Patient was discharged on Atarax. Patient comes in for severe epigastric and periumbilical pain. No exacerbating or relieving factors. Nausea present but no vomiting or diarrhea. No history of peptic ulcer disease. Pain is sharp. No radiation. Abdominal pain resolved. Patient able to tolerate food (1) Intractable abdominal pain Current Visit: Yes Status: Acute Plan to address problem: Pain is resolved Probably secondary to Atarax or some other medication Patient is not a candidate for EGD as per GI Treat conservatively with oral Protonix and Bentyl. (2) Pruritus Current Visit: No Status: Acute Plan to address problem: Benadryl IV 25 mg every 6 as needed Pruritus resolved (3) Acute gastritis Current Visit: Yes Status: Acute Plan to address problem: IV Protonix for now (4) Discharge planning issues Current Visit: Yes Status: Acute Plan to address problem: Possible discharge tomorrow. Patient could not be discharged today because of the severe abdominal pain. Patient is changed to inpatient. Disposition: TO HOME OR SELFCARE - Discharge Diagnoses (1) Intractable abdominal pain Status: Acute Comment: Improved (2) Pruritus Status: Acute Comment: Famotidine and prednisone (3) Acute gastritis Status: Acute Comment: Protonix 40 twice daily (4) Discharge planning issues Status: Acute Comment: Being discharged today Core Measure Documentation - Palliative Care Palliative Care/ Comfort Measures: Not Applicable - Core Measures Any of the following diagnoses?: none Exam - Constitutional Vitals: Temp Pulse Resp BP Pulse Ox 99.1 F 78 18 134/87 97 06/17/20 05:37 06/17/20 05:37 06/17/20 05:37 06/17/20 05:37 06/17/20 05:37 General appearance: Present: no acute distress, well-nourished - EENT Eyes: Present: PERRL ENT: hearing intact, clear oral mucosa - Neck Neck: Present: supple, normal ROM - Respiratory Respiratory effort: normal Respiratory: bilateral: CTA - Cardiovascular Rhythm: regular Heart Sounds: Present: S1 & S2. Absent: rub, click - Extremities Extremities: pulses symmetrical, No edema Peripheral Pulses: within normal limits - Abdominal General gastrointestinal: Present: soft, non-tender, non-distended, normal bowel sounds Female genitourinary: Present: normal - Integumentary Integumentary: Present: clear, warm, dry - Musculoskeletal Musculoskeletal: gait normal, strength equal bilaterally - Psychiatric Psychiatric: appropriate mood/affect, intact judgment & insight - Neurologic Neurologic: CNII-XII intact, moves all extremities Plan Activity: no restrictions (78) Diet: low salt Follow up with: PRIMARY CARE, [Primary Care Provider] - 3-5 Days [facility], [LAB/CONTRACT] - 7 Days
[2020-06-17] MEDS: HYDROmorphone 1 MG/1 ML INJ IV PRN (08:50)
--- NOTE | 2020-06-17 09:17 | Gastroenterology Progress Note ---
Assessment and Plan Acute abdominal pain most likely related to medication side effect versus acute gastroenteritis. Acute peptic ulcer disease less likely given the lack of risk factors as well as presentation Therefore recommend continue supportive care continue twice daily PPI, bentyl for 30 days From GI perspective, patient improving therefore I am advancing her diet and she can be discharged, if her symptoms fully resolve over the next 2 weeks she does not require outpatient follow-up. If her symptoms do not fully resolve she should follow-up as an outpatient Regarding the constipation I added laxatives, suspect opiate induced constipation due to her pain medication she is currently receiving here in the hospital, and that as she decreases her opiate use her constipation will resolve - Patient Problems (1) Abnormal CT of the abdomen Current Visit: Yes Status: Acute (2) Acute gastritis Current Visit: Yes Status: Acute (3) Intractable abdominal pain Current Visit: Yes Status: Acute Subjective Date of service: 06/17/20 Principal diagnosis: Acute Gastritis Interval history: Patient reports with constipation reports many days since her last bowel movement she has concomitant mild lower abdominal cramping pain Patient additionally reports that her upper abdominal pain is gradually improving reports it is currently 5 out of 10 nonradiating cramping sharp worse with palpation better with pain medication duration days associate with nausea she is tolerating her clear liquid diet Objective - Constitutional Vitals: Temp Pulse Resp BP Pulse Ox 99.1 F 78 18 134/87 97 06/17/20 05:37 06/17/20 05:37 06/17/20 05:37 06/17/20 05:37 06/17/20 05:37 General appearance: no acute distress - EENT ENT: hearing intact - Respiratory Respiratory effort: normal - Cardiovascular Rhythm: regular - Gastrointestinal General gastrointestinal: Present: soft, tender - Labs CBC & Chem 7: 06/16/20 05:16 06/16/20 05:16
[2020-06-17] MEDS: PANTOPRAZOLE 40 MG INJ IV SCH (09:38)
[2020-06-17] MEDS: DICYCLOMINE 10 MG CAP PO SCH ×2 (09:40→16:08)
[2020-06-17] MEDS ORDERED: POLYETHYLENE GLYCOL 3350 17 GM POWDER PO SCH (10:00)
== END 2020-06-17 16:20 | disposition home or self-care (01) | DRG 392 ==
LOC: ED 06:19 → 3A 09:59 → OBSVTOIN 06-16 10:00
PROVIDERS: ADMIT Internal Medicine; ATTEND Internal Medicine
DX: K29.70 Gastritis, unspecified, without bleeding (principal); L29.9 Pruritus, unspecified; Z87.891 Personal history of nicotine dependence; Z82.49 Family history of ischemic heart disease and other diseases of the circulatory system; T50.995A Adverse effect of other drugs, medicaments and biological substances, initial encounter; Y92.89 Other specified places as the place of occurrence of the external cause
CPT/HCPCS: 36415; 74177; 80053; 83036; 83690; 84702; 85025; 96365; 96375; G0378; C9113; J1170; J2405; J7030; J7042; Q9967